=== PATIENT | male | born 1940 | race Caucasian/White ===

== ENCOUNTER 2024-01-31 15:47 | Emergency (ER) | payer MEDICARE, BC ==
[~2024-01-31] VITALS: Ht 167.6 cm; Wt 68.0 kg
[2024-01-31 15:54] VITALS: O2SAT 97
[2024-01-31 16:48] LABS: BASOPHILS % 0.4 % (0.0-2.0); DIFFERENTIAL COMMENT 0; EOSINOPHILS % 0.7 % (0.0-5.0); HEMATOCRIT. 36.2 % (42.0-52.0); HEMOGLOBIN. 12.4 g/dL (14.0-18.0); LYMPHOCYTES % 8.9 % (20.0-50.0); MEAN CORPUSCULAR HEMOGLOBIN 36.2 pg (28.0-32.0); MEAN CORPUSCULAR HGB CONC 34.3 g/dL (31.0-37.0); MEAN CORPUSCULAR VOLUME 105.6 fL (80.0-94.0); MEAN PLATELET VOLUME 7.7 fl (7.4-10.4); MONOCYTES % 12.7 % (2.0-8.0); NEUTROPHILS % 77.3 % (40.0-76.0); PLATELET 187 x1000/uL (130-400); RED BLOOD CELL COUNT 3.43 mill/uL (4.7-6.1); RED CELL DISTRIBUTION WIDTH 13.1 % (11.6-14.6); WHITE BLOOD COUNT 6.5 x1000/uL (4.5-11.0)
[2024-01-31 16:52] LABS: CARBON DIOXIDE 22 mEq/L (21-32); CHLORIDE 96 mEq/L (98-107); POTASSIUM 4.2 mEq/L (3.5-5.1); SODIUM 126 mEq/L (136-145)
[2024-01-31 16:53] LABS: CALCIUM 9.5 mg/dL (8.7-10.4)
[2024-01-31 16:58] LABS: CREATININE 0.8 mg/dL (0.6-1.3); GLUCOSE 103 mg/dL (70-105); UREA NITROGEN BLOOD 12 mg/dL (9-23)
[2024-01-31 16:59] LABS: ALANINE AMINOTRANSFERASE 30 IU/L (10-49); ASPARTATE AMINOTRANSFERASE 37 IU/L (<34)
[2024-01-31 17:00] LABS: ALBUMIN 4.5 g/dL (3.2-4.8); PROTEIN TOTAL 7.5 g/dL (6.0-8.3)
[2024-01-31] MEDS: ENOXAPARIN 80MG/0.8ML SYR SUBCUT NR (18:50)
[2024-01-31] MEDS: IOHEXOL-350 100 ML BOTTLE ONE (20:25)
[2024-01-31 22:07] LABS: CLARITY URINE CLEAR (CLEAR); COLOR URINE YELLOW (YELLOW); GLUCOSE URINE NEGATIVE (NEGATIVE); KETONES URINE 2+ (NEGATIVE); LEUKOCYTE ESTERASE URINE NEGATIVE (NEGATIVE); NITRITE URINE NEGATIVE (NEGATIVE); OCCULT BLOOD URINE NEGATIVE (NEGATIVE); PROTEIN URINE 1+ (NEGATIVE); SPECIFIC GRAVITY URINE 1.039 (1.005-1.030); UROBILINOGEN URINE 0.2 E.U./dL (0.2-1.0)
[2024-01-31 22:23] LABS: BACTERIA URINE NONE SEEN; RBC URINE NONE SEEN /hpf (0-2); SQUAMOUS EPITHELIAL CELL URINE RARE /lpf (RARE/1+); WBC URINE NONE SEEN /hpf (0-2)
[2024-02-01 06:14] VITALS: TEMP 37.05852
[2024-02-01 07:23] VITALS: TEMP 98.7
[2024-02-01 07:43] VITALS: BP 139/61; PULSE 57; RESP 12; O2SAT 98
== END 2024-02-01 07:50 | disposition left against medical advice (07) ==
LOC: ER 15:47 → EDBEDREQ 16:16 → CANBEDREQ 02-01 07:42 → ER 02-01 07:50
DX: E87.1 Hypo-osmolality and hyponatremia (principal); I48.91 Unspecified atrial fibrillation; R41.82 Altered mental status, unspecified; I10 Essential (primary) hypertension; Z95.0 Presence of cardiac pacemaker; Z95.1 Presence of aortocoronary bypass graft
CPT/HCPCS: 99291; 71275; 71045; 80053; 81003; 85025; 85379; 36415; 70450; 93005; 96372; Q9967; J1650